=== PATIENT | male | born 1960 | race African-American/Black ===

== ENCOUNTER 2021-10-31 10:23 | Inpatient (IN) ==
[2021-10-31] MEDS ORDERED: ONDANSETRON 4 MG/2 ML VIAL IV STA (10:46)
[2021-10-31] MEDS ORDERED: SODIUM CHLORIDE 0.9% 1,000 ML IV STA (10:46)
[2021-10-31 11:27] LABS: Basophils # 0.1 10*3/uL (0.0-0.2); Basophils % 0.3 % (0.0-0.8); Eosinophils % 0.2 % (0.00-10.9); Hematocrit 44.5 VOL% (42.0-52.0); Hemoglobin 15.2 GM/DL (14.0-18.0); Immature Granulocytes % 6.5 %; Immature Granulocytes Absolute 1.02 #; Lymphocytes # 1.4 10*3/uL (1.4-4.0); Lymphocytes % 8.7 % (21.2-54.2); Mean Corpuscular HGB Conc 34.2 GM/DL (32-36); Mean Corpuscular Volume 91.6 FL (87-102); Mean Platelet Volume 11.2 FL (9.6-12.0); Monocytes % 15.5 % (1.7-12.7); NRBC # 0.52 10*3/uL; Neutrophils % 68.8 % (38.7-73.9); Platelet Count 203 T/CUMM (130-400); Red Blood Count 4.86 MC/CUMM (3.8-5.5); Red Cell Distribution Width 14.6 % (9.3-17.3); White Blood Count 15.7 T/CUMM (4-12)
[2021-10-31 11:50] LABS: Anisocytosis 1+; Band Neutrophils 33 % (0-10); Eosinophils 1 % (0-10); Lymphocytes 8 % (20-55); Macrocytosis 1+; Metamyelocytes 5 %; Nucleated Red Blood Cells 7 (0-5); Platelet Estimate Normal; Segmented Neutrophils 37 % (50-85); Total Cells Counted 100
[2021-10-31 11:51] LABS: Albumin 2.6 G/DL (3.4-5.0); Bilirubin,Total 1.1 MG/DL (0.20-1.00); Calcium 8.7 MG/DL (8.5-10.1); Osmolality,Calculated 293.2 MOS/KG (273-304); Total Protein 8.2 G/DL (6.4-8.2)
[2021-10-31] MEDS ORDERED: PANTOPRAZOLE 40 MG VIAL IV STA (12:24)
[2021-10-31] MEDS ORDERED: ONDANSETRON 4 MG/2 ML VIAL IV PRN (14:29)
[2021-10-31] MEDS ORDERED: GLUCAGON 1 MG VIAL IM PRN (14:29)
[2021-10-31] MEDS ORDERED: NICOTINE 21 MG/24 HR PATCH TRANSDERM PRN (14:29)
[2021-10-31] MEDS ORDERED: DEXTROSE 50% 25 GM/50 ML SYRINGE IV PRN (14:35)
[2021-10-31] MEDS ORDERED: LORazepam 2 MG/1 ML VIAL IV PRN (15:01)
[2021-10-31] MEDS: SODIUM CHLORIDE 0.9% 1,000 ML IV SCH ×2 (15:29→21:53)
[2021-10-31] MEDS: cefTRIAXone 1,000 MG in SODIUM CHLORIDE 0.9% 100 ML IV SCH (15:34)
[2021-10-31] MEDS ORDERED: INFLUENZA VIRUS VACCINE 0.5 ML SYRINGE IM ONE (17:05)
[2021-10-31 17:25] LABS: Hematocrit 42.7 VOL% (42.0-52.0); Hemoglobin 14.2 GM/DL (14.0-18.0)
[2021-10-31 23:20] LABS: Hematocrit 41.1 VOL% (42.0-52.0); Hemoglobin 13.6 GM/DL (14.0-18.0)
[2021-11-01 05:44] LABS: Basophils % 0.2 % (0.0-0.8); Eosinophils % 0.2 % (0.00-10.9); Hematocrit 39.5 VOL% (42.0-52.0); Hemoglobin 13.4 GM/DL (14.0-18.0); Immature Granulocytes % 6.9 %; Immature Granulocytes Absolute 1.22 #; Lymphocytes # 1.4 10*3/uL (1.4-4.0); Lymphocytes % 7.7 % (21.2-54.2); Mean Corpuscular HGB Conc 33.9 GM/DL (32-36); Mean Corpuscular Volume 92.1 FL (87-102); NRBC # 0.24 10*3/uL; Platelet Count 216 T/CUMM (130-400); Red Blood Count 4.29 MC/CUMM (3.8-5.5); Red Cell Distribution Width 14.9 % (9.3-17.3); White Blood Count 17.6 T/CUMM (4-12)
[2021-11-01 06:09] LABS: Band Neutrophils 11 % (0-10); Hypochromia Slight; Lymphocytes 9 % (20-55); Microcytosis Slight; Myelocytes 1 %; Nucleated Red Blood Cells 1 (0-5); Platelet Estimate Adequate; Segmented Neutrophils 70 % (50-85); Total Cells Counted 100
[2021-11-01 06:20] LABS: Albumin 2.1 G/DL (3.4-5.0); Bilirubin,Total 1.1 MG/DL (0.20-1.00); Calcium 7.9 MG/DL (8.5-10.1); Osmolality,Calculated 295.8 MOS/KG (273-304); Potassium 3.9 MMOL/L (3.5-5.1); Risk Ratio 4.69; Thyroid Stimulating Hormone 1.48 uIU/ml (0.358-3.74); VLDL Cholesterol 23.6 MG/DL
[2021-11-01] MEDS: SODIUM CHLORIDE 0.9% 1,000 ML IV SCH ×4 (07:46→21:43)
[2021-11-01] MEDS ORDERED: chlordiazePOXIDE 25 MG CAPSULE PO PRN (12:09)
[2021-11-01] MEDS: PANTOPRAZOLE 40 MG VIAL IV SCH ×2 (13:48→20:19)
[2021-11-01] MEDS: cefTRIAXone 1,000 MG in SODIUM CHLORIDE 0.9% 100 ML IV SCH (17:04)
[2021-11-02 05:46] LABS: Basophils # 0.1 10*3/uL (0.0-0.2); Basophils % 0.5 % (0.0-0.8); Eosinophils % 0.1 % (0.00-10.9); Hematocrit 36.4 VOL% (42.0-52.0); Hemoglobin 11.8 GM/DL (14.0-18.0); Immature Granulocytes % 5.7 %; Immature Granulocytes Absolute 1.47 #; Lymphocytes # 1.2 10*3/uL (1.4-4.0); Lymphocytes % 4.6 % (21.2-54.2); Mean Corpuscular HGB Conc 32.4 GM/DL (32-36); Mean Corpuscular Volume 93.8 FL (87-102); Mean Platelet Volume 10.5 FL (9.6-12.0); Monocytes % 4.2 % (1.7-12.7); NRBC # 0.19 10*3/uL; Neutrophils % 84.9 % (38.7-73.9); Platelet Count 214 T/CUMM (130-400); Red Blood Count 3.88 MC/CUMM (3.8-5.5); Red Cell Distribution Width 15.3 % (9.3-17.3); White Blood Count 25.9 T/CUMM (4-12)
[2021-11-02 06:15] LABS: Lymphocytes 5 % (20-55); Nucleated Red Blood Cells 2 (0-5); Platelet Estimate Adequate; Segmented Neutrophils 89 % (50-85); Total Cells Counted 100
[2021-11-02 06:26] LABS: Albumin 1.9 G/DL (3.4-5.0); Bilirubin,Total 0.7 MG/DL (0.20-1.00); Calcium 8.5 MG/DL (8.5-10.1); Osmolality,Calculated 289.3 MOS/KG (273-304); Potassium 3.7 MMOL/L (3.5-5.1); Total Protein 6.6 G/DL (6.4-8.2)
[2021-11-02 06:34] LABS: % Iron Saturation 14.9 % (18-50); Ferritin 1050.3 ng/mL (26-388)
[2021-11-02 07:02] LABS: Hepatitis B Core IgM Quant 0.13 Index; Hepatitis B Surface Ag Result Non-Reactive (NonReactive); Hepatitis C Virus Ab Quant 0.08 Index; Hepatitis C Virus Ab Result Non-Reactive (NonReactive)
[2021-11-02] MEDS: MULTIVITAMIN (CENTRUM) TABLET PO SCH (08:04)
[2021-11-02] MEDS: THIAMINE 100 MG TABLET PO SCH (08:05)
[2021-11-02] MEDS: FOLIC ACID 1 MG TABLET PO SCH (08:05)
[2021-11-02] MEDS: PANTOPRAZOLE 40 MG VIAL IV SCH ×2 (08:05→20:52)
[2021-11-02] MEDS: PIPERACILLIN/TAZOBACTAM 3,375 MG in SODIUM CHLORIDE 0.9% 100 ML IV SCH ×3 (08:08→23:26)
[2021-11-02] MEDS: SODIUM CHLORIDE 0.9% 1,000 ML IV SCH ×3 (08:09→17:54)
[2021-11-02] MEDS ORDERED: ALUM/MAG/SIMETH/LIDO VISC 1:1 30 ML BOTTLE PO ONE (17:39)
[2021-11-02] MEDS ORDERED: ALUMINUM/MAGNES/SIMETH MAX STR 30 ML UDCUP PO PRN (17:39)
[2021-11-03] MEDS: SODIUM CHLORIDE 0.9% 1,000 ML IV SCH ×3 (04:53→16:47)
[2021-11-03 05:10] LABS: Basophils # 0.1 10*3/uL (0.0-0.2); Basophils % 0.5 % (0.0-0.8); Eosinophils % 0.1 % (0.00-10.9); Hematocrit 34.9 VOL% (42.0-52.0); Hemoglobin 11.5 GM/DL (14.0-18.0); Immature Granulocytes % 4.5 %; Immature Granulocytes Absolute 1.29 #; Lymphocytes # 1.2 10*3/uL (1.4-4.0); Mean Corpuscular Volume 95.4 FL (87-102); Mean Platelet Volume 10.2 FL (9.6-12.0); Monocytes % 3.4 % (1.7-12.7); NRBC # 0.12 10*3/uL; Neutrophils % 87.5 % (38.7-73.9); Platelet Count 237 T/CUMM (130-400); Red Blood Count 3.66 MC/CUMM (3.8-5.5); Red Cell Distribution Width 15.2 % (9.3-17.3); White Blood Count 28.7 T/CUMM (4-12)
[2021-11-03 05:28] LABS: INR 1.3; PT Patient Result 13.8 SECS (10.5-12.0); Partial Thromboplastin Time 29.7 SECS (23.8-32.1)
[2021-11-03 05:34] LABS: Albumin 1.8 G/DL (3.4-5.0); Bilirubin,Total 0.8 MG/DL (0.20-1.00); Osmolality,Calculated 284.1 MOS/KG (273-304); Potassium 3.6 MMOL/L (3.5-5.1); Total Protein 6.4 G/DL (6.4-8.2)
[2021-11-03 05:39] LABS: Hypochromia Slight; Microcytosis Slight; Platelet Estimate Adequate; Segmented Neutrophils 94 % (50-85); Total Cells Counted 100
[2021-11-03] MEDS: PIPERACILLIN/TAZOBACTAM 3,375 MG in SODIUM CHLORIDE 0.9% 100 ML IV SCH (09:02)
[2021-11-03] MEDS: FOLIC ACID 1 MG TABLET PO SCH (09:03)
[2021-11-03] MEDS: MULTIVITAMIN (CENTRUM) TABLET PO SCH (09:03)
[2021-11-03] MEDS: PANTOPRAZOLE 40 MG VIAL IV SCH (09:03)
[2021-11-03] MEDS: THIAMINE 100 MG TABLET PO SCH (09:04)
[2021-11-03] MEDS ORDERED: LIDOCAINE 2% 5 ML VIAL ONE (14:05)
[2021-11-03] MEDS ORDERED: propofoL 200 MG/20 ML VIAL IV ONE (14:05)
[2021-11-03 14:46] VITALS: BP 102/070
[2021-11-03] MEDS ORDERED: PIPERACILLIN/TAZOBACTAM 3,375 MG in SODIUM CHLORIDE 0.9% 100 ML IV SCH (15:30)
== END 2021-11-03 17:05 | disposition left against medical advice (07) | DRG 282 ==
LOC: EDBD → N.ED 10:23 → N.EDINP 14:29 → SUATTDRO 14:29 → N.3E 16:35
PROVIDERS: ADMIT Internal Medicine Geriatric Medicine; ATTEND Internal Medicine